=== PATIENT | female | born 1995 | race Caucasian/White ===

== ENCOUNTER 2017-09-06 10:19 | Inpatient (IN) | payer BC ==
[2017-09-06] MEDS ORDERED: Sodium Chloride 0.9% 10 ML Syringe FLUSH PRN (20:07)
[2017-09-06] MEDS ORDERED: Oxytocin/Lactated Ringers 10 UNIT/1,000 ML BAG IV SCH (20:15)
--- NOTE | 2017-09-06 20:32 | PCM.LDHP ---
<Nixon Snell - Last Filed: 09/06/17 20:22> L&D History of Present Illness - General Date of Service: 09/06/17 Admit Problem/Dx: Patient Status Order with Admit Dx/Problem 09/06/17 11:11 Patient Status [ADT] Routine 09/06/17 20:12 Patient Status [ADT] Routine Admission Diagnosis/Problem Admission Diagnosis/Problem Source of Information: Patient History Limitations: Reports: No Limitations - History of Present Illness Introduction:: Melody Little is a pleasant 22 year old with a FERCHO of 09/02/2017 who presents to labor and delivery for induction. She tested negative for GBS on . She is Rh positive with a blood type of A+. She reports she has noticed the onset of contractions over the last few days. She reports these contractions last approximately 20 secs and appear to occur more frequently in the mornings and at night. She describes the pain as a dull ache and rates it as a 2 out of 10. She locates the pain in her lower abdomen and lower back and does report that the throbbing sensation does appear to radiate down her legs at times. Melody also reports noticing losing a small amount of clear fluid this morning but denies any vaginal bleeding or clots. She reports the loss of fluid was minimal and was unable to give an approximation of how much was lost. Timing/Duration: Reports: seconds: Location, : Reports: Abdomen, Lower back Quality: Reports: Ache, Throbbing Severity: Mild Pain Score: 2 Improves with: Reports: Rest Worsens with: Reports: None Associated Symptoms: Reports: vaginal fluid, mild amount - Related Data Allergies/Adverse Reactions: Allergies Allergy/AdvReac Type Severity Reaction Status Date / Time No Known Allergies Allergy Verified 09/06/17 11:15 Home Medications: Home Meds Ferrous Sulfate [Iron] 325 mg PO DAILY 09/06/17 [History] Loratadine [Claritin] 10 mg PO DAILY 09/06/17 [History] Pnv No.122/Iron/Folic Acid [ Multi Tablet] 1 each PO DAILY 09/06/17 [ History] Social & Family History - Family History Cardiac: Reports: Other (See Below) (Patient reports both her paternal and maternal grandfathers have had open heart surgery) Musculoskeletal: Reports: Arthritis (Paternal grandmother reports a history of arthritis. She is alive and doing well) Neurological: Reports: Other (See Below) (Patient reports paternal grandfather has had a stroke) Endocrine/Metabolic: Reports: Diabetes, Type I (Paternal grandfather) Oncologic: Reports: Breast (Maternal Grandmother) H&P Review of Systems - Review of Systems: Review Of Systems: See Below General: Reports: Fatigue HEENT: Reports: No Symptoms Pulmonary: Reports: No Symptoms Cardiovascular: Reports: No Symptoms Gastrointestinal: Reports: No Symptoms Genitourinary: Reports: Frequency (Patient reports she has been urinating more frequently but denies any urinary symptoms) Musculoskeletal: Reports: Back Pain Skin: Reports: No Symptoms Psychiatric: Reports: No Symptoms Neurological: Reports: No Symptoms L&D Exam - Exam Exam: See Below - Vital Signs Vital Signs: Last Vital Signs Temp 97.5 F 09/06/17 10:46 Pulse 82 09/06/17 10:46 Resp 18 09/06/17 10:46 BP 121/77 09/06/17 10:46 Pulse Ox 100 09/06/17 10:46 Weight: 177 lb - OB Specific Fundal Height In cm: 40 Contraction Duration (sec): 20 Contraction Intensity: Mild to Moderate Movement: Active Heart Tones: Present Heart Tones per Min: 150 Heart Rate (FHR) Variability: Moderate (6-25 bmp) Presentation: Vertex - Exam General: Alert, Oriented HEENT: Conjunctiva Clear, EOMI, Hearing Intact, Mucosa Moist & Ceex Haci, Pupils Equal, Pupils Reactive Neck: Supple, Trachea Midline Lungs: Clear to Auscultation, Normal Respiratory Effort Cardiovascular: Regular Rate, Regular Rhythm GI/Abdominal Exam: Soft, Non-Tender, No Organomegaly, No Distention Extremities: Pedal Edema Skin: Warm, Dry, Intact DTR: 2+: Bicep (L), Bicep (R), Tricep (L), Tricep (R), 3+: Patella (L), Patella (R) Psychiatric: Alert, Normal Affect, Normal Mood - Patient Data Lab Results Last 24 hrs: Laboratory Results - last 24 hr 09/06/17 Range/Units 10:40 Membrane Rupture Negative Orders Last 24hrs: Active Orders 24 hr Category Date Time Status Patient Status [ADT] Routine ADT 09/06/17 11:11 Active Patient Status [ADT] Routine ADT 09/06/17 20:12 Active Activity as Tolerated [RC] PFP Care 09/06/17 20:12 Active Communication Order [RC] ASDIRECTED Care 09/06/17 20:12 Active Heart Tones [RC] ASDIRECTED Care 09/06/17 20:12 Active Non Stress Test [RC] PER UNIT ROUTINE Care 09/06/17 11:11 Active Notify Provider [RC] PFP Care 09/06/17 20:12 Active Notify Provider [RC] PRN Care 09/06/17 20:12 Active Peripheral IV Care [RC] . DIRECTED Care 09/06/17 20:12 Active Ready for Discharge [RC] PER UNIT ROUTINE Care 09/06/17 11:10 Active Vital Signs [RC] PER UNIT ROUTINE Care 09/06/17 11:11 Active Vital Signs [RC] PER UNIT ROUTINE Care 09/06/17 20:12 Active Regular Diet [DIET] Diet 09/07/17 Breakfast Active CBC WITH AUTO DIFF [HEME] Stat Lab 09/06/17 20:07 Ordered TYPE AND SCREEN [BBK] Stat Lab 09/06/17 20:07 Ordered Lactated Ringers [Ringers, Lactated] 1,000 ml Med 09/06/17 20:15 Active IV ASDIRECTED Oxytocin [Pitocin] 20 unit Med 09/06/17 20:15 Active Lactated Ringers [Ringers, Lactated] 1,000 ml IV ASDIRECTED Oxytocin/Lactated Ringers [Pitocin in LR 10 Units/1,000 Med 09/06/17 20:15 Active ML] 10 unit in 1,000 ml IV TITRATE Sodium Chloride 0.9% [Saline Flush] Med 09/06/17 20:07 Active 10 ml FLUSH ASDIRECTED PRN Electronic Heart Tones Ext w TOCO [WOMSER] Oth 09/06/17 20:12 Ordered Routine Electronic Heart Tones Internal [WOMSER] Per Unit Oth 09/06/17 20:12 Ordered Routine Peripheral IV Insertion Adult [OM.PC] Routine Oth 09/06/17 20:12 Ordered Resuscitation Status Routine Resus Stat 09/06/17 11:10 Ordered Medication Orders Lactated Ringer's (Ringers, Lactated) 1,000 mls @ 100 mls/hr IV ASDIRECTED HUAN Oxytocin/Lactated Ringer's (Pitocin In Lr 10 Units/1,000 Ml) 10 unit in 1,000 mls @ 12 mls/hr IV TITRATE HUAN; 2 MUNITS/MIN PRN Reason: Protocol Oxytocin 20 unit/ Lactated (Ringer's) 1,002 mls @ 500 mls/hr IV ASDIRECTED HUAN Sodium Chloride (Saline Flush) 10 ml FLUSH ASDIRECTED PRN PRN Reason: Keep Vein Open <Pascual Alnozo - Last Filed: 09/07/17 08:05> L&D History of Present Illness - General Admit Problem/Dx: Patient Status Order with Admit Dx/Problem 09/06/17 11:11 Patient Status [ADT] Routine 09/06/17 20:12 Patient Status [ADT] Routine Admission Diagnosis/Problem Admission Diagnosis/Problem Source of Information: Patient History Limitations: Reports: No Limitations H&P Review of Systems - Review of Systems: Review Of Systems: See Below General: Reports: No Symptoms HEENT: Reports: No Symptoms Pulmonary: Reports: No Symptoms Cardiovascular: Reports: No Symptoms Gastrointestinal: Reports: No Symptoms Genitourinary: Reports: No Symptoms Musculoskeletal: Reports: No Symptoms Skin: Reports: No Symptoms Psychiatric: Reports: No Symptoms Neurological: Reports: No Symptoms Hematologic/Lymphatic: Reports: No Symptoms Immunologic: Reports: No Symptoms L&D Exam - Exam Exam: See Below - Vital Signs Vital Signs: Last Vital Signs Temp 98.2 F 09/06/17 19:19 Pulse 81 09/06/17 19:19 Resp 18 09/07/17 00:34 BP 116/75 09/06/17 19:19 Pulse Ox 99 09/07/17 00:34 - Exam General: Alert, Oriented HEENT: PERRLA, Conjunctiva Clear, EACs Clear, EOMI, Hearing Intact, Mucosa Moist & Ceex Haci, Nares Patent, Normal Nasal Septum, Posterior Pharynx Clear, TMs Clear Neck: Supple, Trachea Midline Lungs: Clear to Auscultation, Normal Respiratory Effort Cardiovascular: Regular Rate, Regular Rhythm GI/Abdominal Exam: Normal Bowel Sounds, Soft, Non-Tender, No Organomegaly, No Distention, No Abnormal Bruit, No Mass, Pelvis Stable Rectal Exam: Normal Exam, Normal Rectal Tone Genitourinary: Normal external exam, Normal bimanual exam, Normal speculum exam Back Exam: Normal Inspection, Full Range of Motion Extremities: Normal Inspection, Normal Range of Motion, Non-Tender, No Pedal Edema, Normal Capillary Refill Skin: Warm, Dry, Intact Neurological: Cranial Nerves Intact, Reflexes Equal Bilateral Psychiatric: Alert, Normal Affect, Normal Mood - Patient Data Lab Results Last 24 hrs: Laboratory Results - last 24 hr 09/06/17 09/06/17 09/06/17 Range/Units 10:40 20:22 20:22 WBC 10.89 H (3.98-10.04) K/mm3 RBC 4.01 (3.98-5.22) M/mm3 Hgb 12.5 (11.2-15.7) gm/L Hct 35.8 (34.1-44.9) % MCV 89.3 (79.4-94.8) fl MCH 31.2 (25.6-32.2) pg MCHC 34.9 (32.2-35.5) g/dl RDW Std Deviation 40.9 (36.4-46.3) fL Plt Count 210 (182-369) K/mm3 MPV 9.3 L (9.4-12.3) fl Neut % (Auto) 74.9 H (34.0-71.1) % Lymph % (Auto) 16.3 L (19.3-51.7) % [place] % (Auto) 7.9 (4.7-12.5) % Eos % (Auto) 0.4 L (0.7-5.8) Baso % (Auto) 0.1 (0.1-1.2) % Neut # (Auto) 8.17 H (1.56-6.13) K/mm3 Lymph # (Auto) 1.77 (1.18-3.74) K/mm3 [place] # (Auto) 0.86 H (0.24-0.36) K/mm3 Eos # (Auto) 0.04 (0.04-0.36) K/mm3 Baso # (Auto) 0.01 (0.01-0.08) K/mm3 Membrane Rupture Negative Blood Type A POSITIVE Gel Antibody Screen Negative Result Diagrams: 09/06/17 20:22 - Problem List (1) 40 weeks gestation of SNOMED Code(s): 27869133 ICD Code: Z3A.40 - 40 WEEKS GESTATION OF Status: Acute Current Visit: Yes Problem List Initiated/Reviewed/Updated: No Orders Last 24hrs: Active Orders 24 hr Category Date Time Status Patient Status [ADT] Routine ADT 09/06/17 11:11 Active Patient Status [ADT] Routine ADT 09/06/17 20:12 Active Activity as Tolerated [RC] PFP Care 09/06/17 20:12 Active Communication Order [RC] ASDIRECTED Care 09/06/17 20:12 Active Non Stress Test [RC] PER UNIT ROUTINE Care 09/06/17 11:11 Active Notify Provider [RC] ASDIRECTED Care 09/06/17 23:33 Active Notify Provider [RC] PFP Care 09/06/17 20:12 Active Notify Provider [RC] PRN Care 09/06/17 20:12 Active Ready for Discharge [RC] PER UNIT ROUTINE Care 09/06/17 11:10 Active Vital Signs [RC] 04,12,20 Care 09/06/17 20:12 Active Regular Diet [DIET] Diet 09/07/17 Breakfast Active Bupivacaine/fentaNYL/NS [fentaNYL/Bupivacaine/NS 2 MCG- Med 09/06/17 23:45 Active 0.125% 100 ML] 100 ml EPIDUR ASDIRECTED Lactated Ringers [Ringers, Lactated] 1,000 ml Med 09/06/17 20:15 Active IV ASDIRECTED Oxytocin [Pitocin] 20 unit Med 09/06/17 20:15 Active Lactated Ringers [Ringers, Lactated] 1,000 ml IV ASDIRECTED Oxytocin/Lactated Ringers [Pitocin in LR 10 Units/1,000 Med 09/06/17 20:15 Active ML] 10 unit in 1,000 ml IV TITRATE Sodium Chloride 0.9% [Saline Flush] Med 09/06/17 20:07 Active 10 ml FLUSH ASDIRECTED PRN diphenhydrAMINE [Benadryl] Med 09/06/17 23:33 Active 25 mg IVPUSH Q6H PRN ePHEDrine [ePHEDrine Sulfate] Med 09/06/17 23:33 Active 5 mg IVPUSH ASDIRECTED PRN fentaNYL [Sublimaze] Med 09/06/17 23:33 Active 100 mcg EPIDUR Q3H PRN Electronic Heart Tones Ext w TOCO [WOMSER] Oth 09/06/17 20:12 Ordered Routine Electronic Heart Tones Internal [WOMSER] Per Unit Oth 09/06/17 20:12 Ordered Routine Peripheral IV Insertion Adult [OM.PC] Routine Oth 09/06/17 20:12 Ordered Resuscitation Status Routine Resus Stat 09/06/17 11:10 Ordered Medication Orders Diphenhydramine HCl (Benadryl) 25 mg IVPUSH Q6H PRN PRN Reason: pruritis Ephedrine Sulfate (Ephedrine Sulfate) 5 mg IVPUSH ASDIRECTED PRN PRN Reason: Hypotension Fentanyl (Sublimaze) 100 mcg EPIDUR Q3H PRN PRN Reason: Pain Last Admin: 09/07/17 00:35 Dose: 100 mcg Fentanyl/Bupivacaine HCl (Fentanyl/Bupivacaine/Ns 2 Mcg-0.125% 100 Ml) 100 ml EPIDUR ASDIRECTED HUAN Last Admin: 09/07/17 00:34 Dose: 100 ml Lactated Ringer's (Ringers, Lactated) 1,000 mls @ 100 mls/hr IV ASDIRECTED HUAN Last Admin: 09/07/17 03:08 Dose: 100 mls/hr Infusion: 09/07/17 03:08 Dose: 100 mls/hr Admin: 09/07/17 00:55 Dose: 100 mls/hr Infusion: 09/07/17 00:55 Dose: 100 mls/hr Admin: 09/07/17 00:25 Dose: 100 mls/hr Infusion: 09/07/17 00:25 Dose: 100 mls/hr Admin: 09/06/17 21:25 Dose: 100 mls/hr Oxytocin/Lactated Ringer's (Pitocin In Lr 10 Units/1,000 Ml) 10 unit in 1,000 mls @ 12 mls/hr IV TITRATE HUAN; 2 MUNITS/MIN PRN Reason: Protocol Last Titration: 09/07/17 05:50 Dose: 2 munits/min, 12 mls/hr Titration: 09/07/17 05:20 Dose: 1 munits/min, 6 mls/hr Titration: 09/07/17 01:30 Dose: 0 munits/min, 0 mls/hr Titration: 09/07/17 00:07 Dose: 2 munits/min, 12 mls/hr Titration: 09/06/17 23:13 Dose: 3 munits/min, 18 mls/hr Admin: 09/06/17 21:25 Dose: 2 munits/min, 12 mls/hr Oxytocin 20 unit/ Lactated (Ringer's) 1,002 mls @ 500 mls/hr IV ASDIRECTED HUAN Sodium Chloride (Saline Flush) 10 ml FLUSH ASDIRECTED PRN PRN Reason: Keep Vein Open Assessment/Plan Comment:: Patient seen, examined and discussed with the student.
[2017-09-06] MEDS ORDERED: Lactated Ringers 1,000 ML ONE ×2 (21:15→23:42)
[2017-09-06] MEDS ORDERED: Oxytocin/Lactated Ringers 10 UNIT/1,000 ML BAG IV ONE (21:16)
[2017-09-06] MEDS: Lactated Ringers 1,000 ML IV SCH (21:25)
[2017-09-06] MEDS ORDERED: fentaNYL 100 MCG/2 ML SDV EPIDUR PRN (23:33)
[2017-09-06] MEDS ORDERED: ePHEDrine 50 MG/ML SDV IVPUSH PRN (23:33)
[2017-09-06] MEDS ORDERED: diphenhydrAMINE 50 MG/ML SDV IVPUSH PRN (23:33)
[2017-09-06] MEDS ORDERED: Bupivacaine/fentaNYL/NS 100 ML Bag EPIDUR SCH (23:45)
[2017-09-07] MEDS: Lactated Ringers 1,000 ML IV SCH ×4 (00:25→08:43)
--- NOTE | 2017-09-07 00:25 | PCM.PREANE ---
Preanesthetic Assessment - Anesthesia/Transfusion/Family Hx Anesthesia History: Prior Anesthesia Without Reaction Family History of Anesthesia Reaction: No Transfusion History: No Prior Transfusion(s) - Review of Systems General: No Symptoms Pulmonary: No Symptoms Cardiovascular: No Symptoms Gastrointestinal: Diarrhea (last day) Neurological: No Symptoms Other: Reports: None - Physical Assessment O2 Sat by Pulse Oximetry: 99 Respiratory Rate: 18 Vital Signs: Last Vital Signs Temp 98.2 F 09/06/17 19:19 Pulse 81 09/06/17 19:19 Resp 18 09/06/17 19:19 BP 116/75 09/06/17 19:19 Pulse Ox 99 09/06/17 19:19 Height: 5 ft 5 in Weight: 80.286 kg ASA Class: 2 Mental Status: Alert & Oriented x3 Airway Class: Mallampati = 1 Dentition: Reports: Normal Dentition Thyro-Mental Finger Breadths: 3 Mouth Opening Finger Breadths: 3 ROM/Head Extension: Full Lungs: Clear to Auscultation, Normal Respiratory Effort Cardiovascular: Regular Rate, Regular Rhythm - Lab Values: Laboratory Last Values WBC 10.89 K/mm3 (3.98-10.04) H 09/06/17 20:22 RBC 4.01 M/mm3 (3.98-5.22) 09/06/17 20:22 Hgb 12.5 gm/L (11.2-15.7) 09/06/17 20:22 Hct 35.8 % (34.1-44.9) 09/06/17 20:22 MCV 89.3 fl (79.4-94.8) 09/06/17 20:22 MCH 31.2 pg (25.6-32.2) 09/06/17 20:22 MCHC 34.9 g/dl (32.2-35.5) 09/06/17 20:22 RDW Std Deviation 40.9 fL (36.4-46.3) 09/06/17 20:22 Plt Count 210 K/mm3 (182-369) 09/06/17 20:22 MPV 9.3 fl (9.4-12.3) L 09/06/17 20:22 Neut % (Auto) 74.9 % (34.0-71.1) H 09/06/17 20:22 Lymph % (Auto) 16.3 % (19.3-51.7) L 09/06/17 20:22 [place] % (Auto) 7.9 % (4.7-12.5) 09/06/17 20:22 Eos % (Auto) 0.4 (0.7-5.8) L 09/06/17 20:22 Baso % (Auto) 0.1 % (0.1-1.2) 09/06/17 20:22 Neut # (Auto) 8.17 K/mm3 (1.56-6.13) H 09/06/17 20:22 Lymph # (Auto) 1.77 K/mm3 (1.18-3.74) 09/06/17 20: [place] # (Auto) 0.86 K/mm3 (0.24-0.36) H 09/06/17 20:22 Eos # (Auto) 0.04 K/mm3 (0.04-0.36) 09/06/17 20: Baso # (Auto) 0.01 K/mm3 (0.01-0.08) 09/06/17 20:22 Membrane Rupture Negative 09/06/17 10:40 Blood Type A POSITIVE 09/06/17 20:22 Gel Antibody Screen Negative 09/06/17 20:22 - Allergies Allergies/Adverse Reactions: Allergies Allergy/AdvReac Type Severity Reaction Status Date / Time No Known Allergies Allergy Verified 09/06/17 11:15 - Blood Blood Available: No - Acknowledgements Anesthesia Type Planned: Epidural Pt an Appropriate Candidate for the Planned Anesthesia: Yes Alternatives and Risks of Anesthesia Discussed w Pt/Guardian: Yes Pt/Guardian Understands and Agrees with Anesthesia Plan: Yes PreAnesthesia Questionnaire Cardiovascular History: Reports: None Respiratory History: Reports: None Gastrointestinal History: Reports: GERD (very little) [employer] History: Reports: : 1 (40 weeks) Para: 0 - SUBSTANCE USE Smoking Status *Q: Never Smoker Tobacco Use Within Last Twelve Months: No Second Hand Smoke Exposure: No Days Per Week of Alcohol Use: 0 Recreational Drug Use History: No - HOME MEDS Home Medications: Home Meds Ferrous Sulfate [Iron] 325 mg PO DAILY 09/06/17 [History] Loratadine [Claritin] 10 mg PO DAILY 09/06/17 [History] Pnv No.122/Iron/Folic Acid [ Multi Tablet] 1 each PO DAILY 09/06/17 [ History] - CURRENT (IN HOUSE) MEDS Current Meds: Current Medications Diphenhydramine HCl (Benadryl) 25 mg IVPUSH Q6H PRN PRN Reason: pruritis Ephedrine Sulfate (Ephedrine Sulfate) 5 mg IVPUSH ASDIRECTED PRN PRN Reason: Hypotension Fentanyl (Sublimaze) 100 mcg EPIDUR Q3H PRN PRN Reason: Pain Fentanyl/Bupivacaine HCl (Fentanyl/Bupivacaine/Ns 2 Mcg-0.125% 100 Ml) 100 ml EPIDUR ASDIRECTED HUAN Lactated Ringer's (Ringers, Lactated) 1,000 mls @ 100 mls/hr IV ASDIRECTED HUAN Last Admin: 09/06/17 21:25 Dose: 100 mls/hr Oxytocin/Lactated Ringer's (Pitocin In Lr 10 Units/1,000 Ml) 10 unit in 1,000 mls @ 12 mls/hr IV TITRATE HUAN; 2 MUNITS/MIN PRN Reason: Protocol Last Titration: 09/07/17 00:07 Dose: 2 munits/min, 12 mls/hr Oxytocin 20 unit/ Lactated (Ringer's) 1,002 mls @ 500 mls/hr IV ASDIRECTED HUAN Sodium Chloride (Saline Flush) 10 ml FLUSH ASDIRECTED PRN PRN Reason: Keep Vein Open Discontinued Medications Lactated Ringer's (Ringers, Lactated) Confirm Administered Dose 1,000 mls @ as directed .ROUTE .STK-MED ONE Stop: 09/06/17 21:16 Oxytocin/Lactated Ringer's (Pitocin In Lr 10 Units/1,000 Ml) Confirm Administered Dose 10 unit in 1,000 mls @ as directed IV .STK-MED ONE Stop: 09/06/17 21:17 Lactated Ringer's (Ringers, Lactated) Confirm Administered Dose 1,000 mls @ as directed .ROUTE .STK-MED ONE Stop: 09/06/17 23:43
[2017-09-07] MEDS ORDERED: Lactated Ringers 1,000 ML ONE ×3 (00:48→08:33)
--- NOTE | 2017-09-07 08:10 | PCM.SN ---
- Free Text/Narrative Note: Amniotomy clear fluid at 0758 hrs. on 09/07/17. Cervix is 6 cm dilated 70 % effaced, soft, mid position, vertex -1. Category 1 heart rate
[2017-09-07] MEDS ORDERED: Lidocaine 1% 50 ML MDV ONE (18:34)
--- NOTE | 2017-09-07 19:06 | PCM.DEL ---
L & D Note - General Info Date of Service: 09/07/17 Mother's Due Date: 09/02/17 - Delivery Note Labor: Spontaneous, Augmented by ARM, Augmented by Oxytocin Delivery Outcome: Livebirth (female liveborn 09/07/17 at 1832 hrs. under epidural (worn off)weight pending Apgars 8/9 FERNANDEZ no episiotomy first-degree periurethral right medial laceration and midline and right second-degree laceration sutured with 3-0 Monocryl 1 for second-degree laceration first- degree laceration not bleeding not sutured.) Delivery Method: Spontaneous Vaginal Delivery-Single Delivery Mode: Spontaneous Presentation: Right Occiput Anterior (FERNANDEZ) Nuchal Cord: None Prep: Povidone-Iodine (Betadine Anesthesia Type: Local (one percent lidocaine without epinephrine), Epidural ( for labor, no anesthesia at delivery, lidocaine 1% without epinephrine for repair of second-degree laceration midline right) Anesthetic: Lidocaine (Xylocaine) 1% Plain Local Anesthetic Volume: Other (12 mL) Amniotic Fluid Description: Clear Episiotomy Type: None Laceration: 1st Degree (right periurethral medial not bleeding not sutured), 2nd Degree (midline slightly to patient's right sutured with 3-0 Monocryl times one) Suture type: Other (Monocryl times one) Suture size: 3-0 Placenta: Intact (intact delivered at 1837 hrs. and examined discarded central cord insertion), Spontaneous (1837 hrs. 09/07/17) Cord: 3 Vessels Estimated Blood Loss: 300 Resuscitation Needed: No [place]: Suctioned, Bulb Syringe, Stimulated, Warmed, [place] Used, Warmer Used Provider: aPscual Alonzo Score 1 min: 8 Score 5 min: 9 - Patient Data Vitals - Most Recent: Last Vital Signs Temp 98.2 F 09/06/17 19:19 Pulse 81 09/06/17 19:19 Resp 18 09/07/17 00:34 BP 116/75 09/06/17 19:19 Pulse Ox 99 09/07/17 00:34 Weight - Most Recent: 177 lb I&O - Last 24 Hours: Intake & Output 09/07/17 09/07/17 09/07/17 06:59 14:59 22:59 Intake Total 60 Balance 60 Lab Results Last 24 Hours: Laboratory Results - last 24 hr 09/06/17 09/06/17 Range/Units 20:22 20:22 WBC 10.89 H (3.98-10.04) K/mm3 RBC 4.01 (3.98-5.22) M/mm3 Hgb 12.5 (11.2-15.7) gm/L Hct 35.8 (34.1-44.9) % MCV 89.3 (79.4-94.8) fl MCH 31.2 (25.6-32.2) pg MCHC 34.9 (32.2-35.5) g/dl RDW Std Deviation 40.9 (36.4-46.3) fL Plt Count 210 (182-369) K/mm3 MPV 9.3 L (9.4-12.3) fl Neut % (Auto) 74.9 H (34.0-71.1) % Lymph % (Auto) 16.3 L (19.3-51.7) % [place] % (Auto) 7.9 (4.7-12.5) % Eos % (Auto) 0.4 L (0.7-5.8) Baso % (Auto) 0.1 (0.1-1.2) % Neut # (Auto) 8.17 H (1.56-6.13) K/mm3 Lymph # (Auto) 1.77 (1.18-3.74) K/mm3 [place] # (Auto) 0.86 H (0.24-0.36) K/mm3 Eos # (Auto) 0.04 (0.04-0.36) K/mm3 Baso # (Auto) 0.01 (0.01-0.08) K/mm3 Blood Type A POSITIVE Gel Antibody Screen Negative Med Orders - Current: Current Medications Diphenhydramine HCl (Benadryl) 25 mg IVPUSH Q6H PRN PRN Reason: pruritis Ephedrine Sulfate (Ephedrine Sulfate) 5 mg IVPUSH ASDIRECTED PRN PRN Reason: Hypotension Fentanyl (Sublimaze) 100 mcg EPIDUR Q3H PRN PRN Reason: Pain Last Admin: 09/07/17 00:35 Dose: 100 mcg Fentanyl/Bupivacaine HCl (Fentanyl/Bupivacaine/Ns 2 Mcg-0.125% 100 Ml) 100 ml EPIDUR ASDIRECTED HUAN Last Admin: 09/07/17 00:34 Dose: 100 ml Lactated Ringer's (Ringers, Lactated) 1,000 mls @ 100 mls/hr IV ASDIRECTED HUAN Last Admin: 09/07/17 08:43 Dose: 100 mls/hr Oxytocin/Lactated Ringer's (Pitocin In Lr 10 Units/1,000 Ml) 10 unit in 1,000 mls @ 12 mls/hr IV TITRATE HUAN; 2 MUNITS/MIN PRN Reason: Protocol Last Titration: 09/07/17 11:40 Dose: 3 munits/min, 18 mls/hr Oxytocin 20 unit/ Lactated (Ringer's) 1,002 mls @ 500 mls/hr IV ASDIRECTED HUAN Sodium Chloride (Saline Flush) 10 ml FLUSH ASDIRECTED PRN PRN Reason: Keep Vein Open Discontinued Medications Lactated Ringer's (Ringers, Lactated) Confirm Administered Dose 1,000 mls @ as directed .ROUTE .STK-MED ONE Stop: 09/06/17 21:16 Oxytocin/Lactated Ringer's (Pitocin In Lr 10 Units/1,000 Ml) Confirm Administered Dose 10 unit in 1,000 mls @ as directed IV .STK-MED ONE Stop: 09/06/17 21:17 Lactated Ringer's (Ringers, Lactated) Confirm Administered Dose 1,000 mls @ as directed .ROUTE .STK-MED ONE Stop: 09/06/17 23:43 Lactated Ringer's (Ringers, Lactated) Confirm Administered Dose 1,000 mls @ as directed .ROUTE .STK-MED ONE Stop: 09/07/17 00:49 Lactated Ringer's (Ringers, Lactated) Confirm Administered Dose 1,000 mls @ as directed .ROUTE .STK-MED ONE Stop: 09/07/17 03:05 Lactated Ringer's (Ringers, Lactated) Confirm Administered Dose 1,000 mls @ as directed .ROUTE .STK-MED ONE Stop: 09/07/17 08:34 Lidocaine HCl (Xylocaine 1%) Confirm Administered Dose 50 ml .ROUTE .STK-MED ONE Stop: 09/07/17 18:35 - Problem List & Annotations (1) 40 weeks gestation of SNOMED Code(s): 32323182 Code(s): Z3A.40 - 40 WEEKS GESTATION OF Status: Acute Current Visit: Yes (2) Second degree perineal laceration during delivery SNOMED Code(s): 7828213 Code(s): O70.1 - SECOND DEGREE PERINEAL LACERATION DURING DELIVERY Status: Acute Current Visit: Yes (3) Periurethral laceration, delivered, current hospitalization SNOMED Code(s): 252109359 Code(s): O71.82 - OTHER SPECIFIED TRAUMA TO PERINEUM AND VULVA Status: Acute Current Visit: Yes - Problem List Review Problem List Initiated/Reviewed/Updated: No - My Orders Last 24 Hours: My Active Orders 09/06/17 20:07 Sodium Chloride 0.9% [Saline Flush] 10 ml FLUSH ASDIRECTED PRN 09/06/17 20:12 Patient Status [ADT] Routine Activity as Tolerated [RC] PFP Communication Order [RC] ASDIRECTED Notify Provider [RC] PFP Notify Provider [RC] PRN Vital Signs [RC] 04,12,20 Electronic Heart Tones Ext w TOCO [WOMSER] Routine Electronic Heart Tones Internal [WOMSER] Per Unit Routine Peripheral IV Insertion Adult [OM.PC] Routine 09/06/17 20:15 Lactated Ringers [Ringers, Lactated] 1,000 ml IV ASDIRECTED Oxytocin [Pitocin] 20 unit Lactated Ringers [Ringers, Lactated] 1,000 ml IV ASDIRECTED Oxytocin/Lactated Ringers [Pitocin in LR 10 Units/1,000 ML] 10 unit in 1,000 ml IV TITRATE 09/07/17 Breakfast Regular Diet [DIET] - Plan Plan:: Patient seen, examined and discussed with the student.
[2017-09-07] MEDS ORDERED: Benzocaine/Menthol 20%-0.5% Spray 56 GM Canister TOP PRN (19:11)
[2017-09-07] MEDS ORDERED: Witch Hazel Medicated Pads 100/Jar TOP PRN (19:11)
[2017-09-07] MEDS ORDERED: Acetaminophen/HYDROcodone 325-5 MG Tab PO PRN (19:11)
[2017-09-07] MEDS ORDERED: Acetaminophen 325 MG Tab PO PRN (19:11)
[2017-09-07] MEDS ORDERED: Docusate Sodium 100 MG Cap PO PRN (19:11)
[2017-09-07] MEDS ORDERED: Lanolin 100% Cream 7 GM Tube TOP PRN (19:11)
[2017-09-07] MEDS ORDERED: Bupivacaine 0.25% 10 ML SDV ONE (22:22)
--- NOTE | 2017-09-08 11:00 | PCM.SN ---
- Free Text/Narrative Note: exam Afebrile, chest clear, uterus at umbilicus -1. No heavy vaginal bleeding. No leg cramping.
--- NOTE | 2017-09-08 14:44 | PCM48HPAN ---
Post Anesthesia Note - EVALUATION WITHIN 48HRS OF ANESTHETIC Vital Signs in Normal Range: Yes Patient Participated in Evaluation: Yes Respiratory Function Stable: Yes Airway Patent: Yes Cardiovascular Function Stable: Yes Hydration Status Stable: Yes Pain Control Satisfactory: Yes Nausea and Vomiting Control Satisfactory: Yes Mental Status Recovered: Yes Pulse Rate: 94 Resp Rate: 15 Temperature: 36.7 C Blood Pressure: 116/68 - COMMENTS/OBSERVATIONS Free Text/Narrative:: Patient overally happy with epidural, had some sacral pain with delivery. No pain, nausea or headache.
[2017-09-08] MEDS: Ibuprofen 600 MG Tab PO PRN (20:58)
--- NOTE | 2017-09-09 09:41 | PCM.DCSUM1 ---
Discharge Summary - Hospital Course Free Text/Narrative:: [facility] LIVE L/D Delivery Note Patient Name: MEME LOPEZ Date of : 89 Patient Status: Inpatient Attending Provider: Pascual Alonzo Date: 09/07/17 19:00 Initialization Date: 09/07/17 19:00 L & D Note - General Info Date of Service: 09/07/17 Mother's Due Date: 09/02/17 - Delivery Note Labor: Spontaneous, Augmented by ARM, Augmented by Oxytocin Delivery Outcome: Livebirth (female liveborn 09/07/17 at 1832 hrs. under epidural (worn off)weight pending Apgars 8/9 FERNANDEZ no episiotomy first-degree periurethral right medial laceration and midline and right second-degree laceration sutured with 3-0 Monocryl 1 for second-degree laceration first- degree laceration not bleeding not sutured.) Infant Delivery Method: Spontaneous Vaginal Delivery-Single Delivery Mode: Spontaneous Presentation: Right Occiput Anterior (FERNANDEZ) Nuchal Cord: None Prep: Povidone-Iodine (Betadine Anesthesia Type: Local (one percent lidocaine without epinephrine), Epidural ( for labor, no anesthesia at delivery, lidocaine 1% without epinephrine for repair of second-degree laceration midline right) Anesthetic: Lidocaine (Xylocaine) 1% Plain Local Anesthetic Volume: Other (12 mL) Amniotic Fluid Description: Clear Episiotomy Type: None Laceration: 1st Degree (right periurethral medial not bleeding not sutured), 2nd Degree (midline slightly to patient's right sutured with 3-0 Monocryl times one) Suture type: Other (Monocryl times one) Suture size: 3-0 Placenta: Intact (intact delivered at 1837 hrs. and examined discarded central cord insertion), Spontaneous (1837 hrs. 09/07/17) Cord: 3 Vessels Estimated Blood Loss: 300 Resuscitation Needed: No : Suctioned, Bulb Syringe, Stimulated, Warmed, Thomson Used, Warmer Used Provider: Pascual Alonzo Score 1 min: 8 Score 5 min: 9 - Patient Data Vitals - Most Recent: Last Vital Signs Temp 98.2 F 09/06/17 19:19 Pulse 81 09/06/17 19:19 Resp 18 09/07/17 00:34 BP 116/75 09/06/17 19:19 Pulse Ox 99 09/07/17 00:34 Weight - Most Recent: 177 lb I&O - Last 24 Hours: Intake & Output 09/07/17 09/07/17 09/07/17 06:59 14:59 22:59 Intake Total 60 Balance 60 Lab Results Last 24 Hours: Laboratory Results - last 24 hr 09/06/17 09/06/17 Range/Units 20:22 20:22 WBC 10.89 H (3.98-10.04) K/mm3 RBC 4.01 (3.98-5.22) M/mm3 Hgb 12.5 (11.2-15.7) gm/L Hct 35.8 (34.1-44.9) % MCV 89.3 (79.4-94.8) fl MCH 31.2 (25.6-32.2) pg MCHC 34.9 (32.2-35.5) g/dl RDW Std Deviation 40.9 (36.4-46.3) fL Plt Count 210 (182-369) K/mm3 MPV 9.3 L (9.4-12.3) fl Neut % (Auto) 74.9 H (34.0-71.1) % Lymph % (Auto) 16.3 L (19.3-51.7) % Sargent % (Auto) 7.9 (4.7-12.5) % Eos % (Auto) 0.4 L (0.7-5.8) Baso % (Auto) 0.1 (0.1-1.2) % Neut # (Auto) 8.17 H (1.56-6.13) K/mm3 Lymph # (Auto) 1.77 (1.18-3.74) K/mm3 Sargent # (Auto) 0.86 H (0.24-0.36) K/mm3 Eos # (Auto) 0.04 (0.04-0.36) K/mm3 Baso # (Auto) 0.01 (0.01-0.08) K/mm3 Blood Type A POSITIVE Gel Antibody Screen Negative Med Orders - Current: Current Medications Diphenhydramine HCl (Benadryl) 25 mg IVPUSH Q6H PRN PRN Reason: pruritis Ephedrine Sulfate (Ephedrine Sulfate) 5 mg IVPUSH ASDIRECTED PRN PRN Reason: Hypotension Fentanyl (Sublimaze) 100 mcg EPIDUR Q3H PRN PRN Reason: Pain Last Admin: 09/07/17 00:35 Dose: 100 mcg Fentanyl/Bupivacaine HCl (Fentanyl/Bupivacaine/Ns 2 Mcg-0.125% 100 Ml) 100 ml EPIDUR ASDIRECTED HUAN Last Admin: 09/07/17 00:34 Dose: 100 ml Lactated Ringer's (Ringers, Lactated) 1,000 mls @ 100 mls/hr IV ASDIRECTED HUAN Last Admin: 09/07/17 08:43 Dose: 100 mls/hr Oxytocin/Lactated Ringer's (Pitocin In Lr 10 Units/1,000 Ml) 10 unit in 1,000 mls @ 12 mls/hr IV TITRATE HUAN; 2 MUNITS/MIN PRN Reason: Protocol Last Titration: 09/07/17 11:40 Dose: 3 munits/min, 18 mls/hr Oxytocin 20 unit/ Lactated (Ringer's) 1,002 mls @ 500 mls/hr IV ASDIRECTED HUAN Sodium Chloride (Saline Flush) 10 ml FLUSH ASDIRECTED PRN PRN Reason: Keep Vein Open Discontinued Medications Lactated Ringer's (Ringers, Lactated) Confirm Administered Dose 1,000 mls @ as directed .ROUTE .STK-MED ONE Stop: 09/06/17 21:16 Oxytocin/Lactated Ringer's (Pitocin In Lr 10 Units/1,000 Ml) Confirm Administered Dose 10 unit in 1,000 mls @ as directed IV .STK-MED ONE Stop: 09/06/17 21:17 Lactated Ringer's (Ringers, Lactated) Confirm Administered Dose 1,000 mls @ as directed .ROUTE .STK-MED ONE Stop: 09/06/17 23:43 Lactated Ringer's (Ringers, Lactated) Confirm Administered Dose 1,000 mls @ as directed .ROUTE .STK-MED ONE Stop: 09/07/17 00:49 Lactated Ringer's (Ringers, Lactated) Confirm Administered Dose 1,000 mls @ as directed .ROUTE .STK-MED ONE Stop: 09/07/17 03:05 Lactated Ringer's (Ringers, Lactated) Confirm Administered Dose 1,000 mls @ as directed .ROUTE .STK-MED ONE Stop: 09/07/17 08:34 Lidocaine HCl (Xylocaine 1%) Confirm Administered Dose 50 ml .ROUTE .STK-MED ONE Stop: 09/07/17 18:35 - Problem List & Annotations (1) 40 weeks gestation of SNOMED Code(s): 19666209 Code(s): Z3A.40 - 40 WEEKS GESTATION OF Status: Acute Current Visit: Yes (2) Second degree perineal laceration during delivery SNOMED Code(s): 6755973 Code(s): O70.1 - SECOND DEGREE PERINEAL LACERATION DURING DELIVERY Status: Acute Current Visit: Yes (3) Periurethral laceration, delivered, current hospitalization SNOMED Code(s): 940848013 Code(s): O71.82 - OTHER SPECIFIED TRAUMA TO PERINEUM AND VULVA Status: Acute Current Visit: Yes - Problem List Review Problem List Initiated/Reviewed/Updated: No - My Orders Last 24 Hours: My Active Orders 09/06/17 20:07 Sodium Chloride 0.9% [Saline Flush] 10 ml FLUSH ASDIRECTED PRN 09/06/17 20:12 Patient Status [ADT] Routine Activity as Tolerated [RC] PFP Communication Order [RC] ASDIRECTED Notify Provider [RC] PFP Notify Provider [RC] PRN Vital Signs [RC] 04,12,20 Electronic Heart Tones Ext w TOCO [WOMSER] Routine Electronic Heart Tones Internal [WOMSER] Per Unit Routine Peripheral IV Insertion Adult [OM.PC] Routine 09/06/17 20:15 Lactated Ringers [Ringers, Lactated] 1,000 ml IV ASDIRECTED Oxytocin [Pitocin] 20 unit Lactated Ringers [Ringers, Lactated] 1,000 ml IV ASDIRECTED Oxytocin/Lactated Ringers [Pitocin in LR 10 Units/1,000 ML] 10 unit in 1,000 ml IV TITRATE 09/07/17 Breakfast Regular Diet [DIET] - Plan Plan:: Patient seen, examined and discussed with the student. HPI Initial Comments: [facility] LIVE L/D Delivery Note Patient Name: MEME LOPEZ Date of : 89 Patient Status: Inpatient Attending Provider: Pascual Alonzo Date: 09/07/17 19:00 Initialization Date: 09/07/17 19:00 L & D Note - General Info Date of Service: 09/07/17 Mother's Due Date: 09/02/17 - Delivery Note Labor: Spontaneous, Augmented by ARM, Augmented by Oxytocin Delivery Outcome: Livebirth (female liveborn 09/07/17 at 1832 hrs. under epidural (worn off)weight pending Apgars 8/9 FERNANDEZ no episiotomy first-degree periurethral right medial laceration and midline and right second-degree laceration sutured with 3-0 Monocryl 1 for second-degree laceration first- degree laceration not bleeding not sutured.) Infant Delivery Method: Spontaneous Vaginal Delivery-Single Infant Delivery Mode: Spontaneous Presentation: Right Occiput Anterior (FERNANDEZ) Nuchal Cord: None Prep: Povidone-Iodine (Betadine Anesthesia Type: Local (one percent lidocaine without epinephrine), Epidural ( for labor, no anesthesia at delivery, lidocaine 1% without epinephrine for repair of second-degree laceration midline right) Anesthetic: Lidocaine (Xylocaine) 1% Plain Local Anesthetic Volume: Other (12 mL) Amniotic Fluid Description: Clear Episiotomy Type: None Laceration: 1st Degree (right periurethral medial not bleeding not sutured), 2nd Degree (midline slightly to patient's right sutured with 3-0 Monocryl times one) Suture type: Other (Monocryl times one) Suture size: 3-0 Placenta: Intact (intact delivered at 1837 hrs. and examined discarded central cord insertion), Spontaneous (1837 hrs. 09/07/17) Cord: 3 Vessels Estimated Blood Loss: 300 Resuscitation Needed: No [place]: Suctioned, Bulb Syringe, Stimulated, Warmed, Thomson Used, Warmer Used Provider: Pascual Alonzo Score 1 min: 8 Score 5 min: 9 - Patient Data Vitals - Most Recent: Last Vital Signs Temp 98.2 F 09/06/17 19:19 Pulse 81 09/06/17 19:19 Resp 18 09/07/17 00:34 BP 116/75 09/06/17 19:19 Pulse Ox 99 09/07/17 00:34 Weight - Most Recent: 177 lb I&O - Last 24 Hours: Intake & Output 09/07/17 09/07/17 09/07/17 06:59 14:59 22:59 Intake Total 60 Balance 60 Lab Results Last 24 Hours: Laboratory Results - last 24 hr 09/06/17 09/06/17 Range/Units 20:22 20:22 WBC 10.89 H (3.98-10.04) K/mm3 RBC 4.01 (3.98-5.22) M/mm3 Hgb 12.5 (11.2-15.7) gm/L Hct 35.8 (34.1-44.9) % MCV 89.3 (79.4-94.8) fl MCH 31.2 (25.6-32.2) pg MCHC 34.9 (32.2-35.5) g/dl RDW Std Deviation 40.9 (36.4-46.3) fL Plt Count 210 (182-369) K/mm3 MPV 9.3 L (9.4-12.3) fl Neut % (Auto) 74.9 H (34.0-71.1) % Lymph % (Auto) 16.3 L (19.3-51.7) % Sargent % (Auto) 7.9 (4.7-12.5) % Eos % (Auto) 0.4 L (0.7-5.8) Baso % (Auto) 0.1 (0.1-1.2) % Neut # (Auto) 8.17 H (1.56-6.13) K/mm3 Lymph # (Auto) 1.77 (1.18-3.74) K/mm3 Sargent # (Auto) 0.86 H (0.24-0.36) K/mm3 Eos # (Auto) 0.04 (0.04-0.36) K/mm3 Baso # (Auto) 0.01 (0.01-0.08) K/mm3 Blood Type A POSITIVE Gel Antibody Screen Negative Med Orders - Current: Current Medications Diphenhydramine HCl (Benadryl) 25 mg IVPUSH Q6H PRN PRN Reason: pruritis Ephedrine Sulfate (Ephedrine Sulfate) 5 mg IVPUSH ASDIRECTED PRN PRN Reason: Hypotension Fentanyl (Sublimaze) 100 mcg EPIDUR Q3H PRN PRN Reason: Pain Last Admin: 09/07/17 00:35 Dose: 100 mcg Fentanyl/Bupivacaine HCl (Fentanyl/Bupivacaine/Ns 2 Mcg-0.125% 100 Ml) 100 ml EPIDUR ASDIRECTED HUAN Last Admin: 09/07/17 00:34 Dose: 100 ml Lactated Ringer's (Ringers, Lactated) 1,000 mls @ 100 mls/hr IV ASDIRECTED HUAN Last Admin: 09/07/17 08:43 Dose: 100 mls/hr Oxytocin/Lactated Ringer's (Pitocin In Lr 10 Units/1,000 Ml) 10 unit in 1,000 mls @ 12 mls/hr IV TITRATE HUAN; 2 MUNITS/MIN PRN Reason: Protocol Last Titration: 09/07/17 11:40 Dose: 3 munits/min, 18 mls/hr Oxytocin 20 unit/ Lactated (Ringer's) 1,002 mls @ 500 mls/hr IV ASDIRECTED HUAN Sodium Chloride (Saline Flush) 10 ml FLUSH ASDIRECTED PRN PRN Reason: Keep Vein Open Discontinued Medications Lactated Ringer's (Ringers, Lactated) Confirm Administered Dose 1,000 mls @ as directed .ROUTE .STK-MED ONE Stop: 09/06/17 21:16 Oxytocin/Lactated Ringer's (Pitocin In Lr 10 Units/1,000 Ml) Confirm Administered Dose 10 unit in 1,000 mls @ as directed IV .STK-MED ONE Stop: 09/06/17 21:17 Lactated Ringer's (Ringers, Lactated) Confirm Administered Dose 1,000 mls @ as directed .ROUTE .STK-MED ONE Stop: 09/06/17 23:43 Lactated Ringer's (Ringers, Lactated) Confirm Administered Dose 1,000 mls @ as directed .ROUTE .STK-MED ONE Stop: 09/07/17 00:49 Lactated Ringer's (Ringers, Lactated) Confirm Administered Dose 1,000 mls @ as directed .ROUTE .STK-MED ONE Stop: 09/07/17 03:05 Lactated Ringer's (Ringers, Lactated) Confirm Administered Dose 1,000 mls @ as directed .ROUTE .STK-MED ONE Stop: 09/07/17 08:34 Lidocaine HCl (Xylocaine 1%) Confirm Administered Dose 50 ml .ROUTE .[employer] ONE Stop: 09/07/17 18:35 - Problem List & Annotations (1) 40 weeks gestation of SNOMED Code(s): 79908577 Code(s): Z3A.40 - 40 WEEKS GESTATION OF Status: Acute Current Visit: Yes (2) Second degree perineal laceration during delivery SNOMED Code(s): 7867039 Code(s): O70.1 - SECOND DEGREE PERINEAL LACERATION DURING DELIVERY Status: Acute Current Visit: Yes (3) Periurethral laceration, delivered, current hospitalization SNOMED Code(s): 781639777 Code(s): O71.82 - OTHER SPECIFIED TRAUMA TO PERINEUM AND VULVA Status: Acute Current Visit: Yes - Problem List Review Problem List Initiated/Reviewed/Updated: No - My Orders Last 24 Hours: My Active Orders 09/06/17 20:07 Sodium Chloride 0.9% [Saline Flush] 10 ml FLUSH ASDIRECTED PRN 09/06/17 20:12 Patient Status [ADT] Routine Activity as Tolerated [RC] PFP Communication Order [RC] ASDIRECTED Notify Provider [RC] PFP Notify Provider [RC] PRN Vital Signs [RC] 04,12,20 Electronic Heart Tones Ext w TOCO [WOMSER] Routine Electronic Heart Tones Internal [WOMSER] Per Unit Routine Peripheral IV Insertion Adult [OM.PC] Routine 09/06/17 20:15 Lactated Ringers [Ringers, Lactated] 1,000 ml IV ASDIRECTED Oxytocin [Pitocin] 20 unit Lactated Ringers [Ringers, Lactated] 1,000 ml IV ASDIRECTED Oxytocin/Lactated Ringers [Pitocin in LR 10 Units/1,000 ML] 10 unit in 1,000 ml IV TITRATE 09/07/17 Breakfast Regular Diet [DIET] - Plan Plan:: Patient seen, examined and discussed with the student. Brief History: [facility] LIVE . L[facility]: [id number] Date of : Patient Status: Inpatient. Attending Provider: Pascual Alonzo Number: [id number]. Date: 09/07/17 19:00Initialization Date: 09/07/17 19:00. L & D Note. - General Info. Date of Service: 09/07/17. Mother's Due Date: 09/02/17. - Delivery Note. Labor: Spontaneous, Augmented by ARM, Augmented by Oxytocin. Delivery Outcome: Livebirth (female liveborn 09/07/17 at 1832 hrs. under epidural (worn off)weight pending Apgars 8/9 FERNANDEZ no episiotomy first- degree periurethral right medial laceration and midline and right second-degree laceration sutured with 3-0 Monocryl 1 for second-degree laceration first- degree laceration not bleeding not sutured.). Delivery Method: Spontaneous Vaginal Delivery-Single. Delivery Mode: Spontaneous. Presentation: Right Occiput Anterior (FERNANDEZ). Nuchal Cord: None. Prep: Povidone- Iodine (Betadine. Anesthesia Type: Local (one percent lidocaine without epinephrine), Epidural (for labor, no anesthesia at delivery, lidocaine 1% without epinephrine for repair of second-degree laceration midline right). Anesthetic: Lidocaine (Xylocaine) 1% Plain. Local Anesthetic Volume: Other (12 mL). Amniotic Fluid Description: Clear. Episiotomy Type: None. Laceration: 1st Degree (right periurethral medial not bleeding not sutured), 2nd Degree ( midline slightly to patient's right sutured with 3-0 Monocryl times one). Suture type: Other (Monocryl times one). Suture size: 3-0. Placenta: Intact ( intact delivered at 1837 hrs. and examined discarded central cord insertion), Spontaneous (1837 hrs. 09/07/17). Cord: 3 Vessels. Estimated Blood Loss: 300. Resuscitation Needed: No. : Suctioned, Bulb Syringe, Stimulated, Warmed , Thomson Used, Warmer Used. Provider: Pascual Alonzo. Score 1 min: 8. Score 5 min: 9. - Patient Data. Vitals - Most Recent: Last Vital Signs. Temp 98.2 F 09/06/17 19:19. Pulse 81 09/06/17 19:19. Resp 18 09/07/17 00:34. BP 116/75 09/06/17 19:19. Pulse Ox 99 09/07/17 00: 34. Weight - Most Recent: 177 lb. I&O - Last 24 Hours: Intake & Output. 01/1803/01/1803. 06:5914:5922:59. Intake Total60. [id number]. Lab Results Last 24 Hours: Laboratory Results - last 24 hr. 09/06/1802/07/18Range/ Units. 20:2220:22. WBC 10.89 H (3.98-10.04) K/mm3. RBC 4.01 (3.98-5.22) M/ mm3. Hgb 12.5 (11.2-15.7) gm/L. Hct 35.8 (34.1-44.9) %. MCV 89.3 (79.4-94.8 ) fl. MCH 31.2 (25.6-32.2) pg. MCHC 34.9 (32.2-35.5) g/dl. RDW Std Deviation 40.9 (36.4-46.3) fL. Plt Count 210 (182-369) K/mm3. MPV 9.3 L (9.4 -12.3) fl. Neut % (Auto) 74.9 H (34.0-71.1) %. Lymph % (Auto) 16.3 L (19.3- 51.7) %. Sargent % (Auto) 7.9 (4.7-12.5) %. Eos % (Auto) 0.4 L (0.7-5.8). Baso % (Auto) 0.1 (0.1-1.2) %. Neut # (Auto) 8.17 H (1.56-6.13) K/mm3. Lymph # (Auto) 1.77 (1.18-3.74) K/mm3. Sargent # (Auto) 0.86 H (0.24-0.36) K/ mm3. Eos # (Auto) 0.04 (0.04-0.36) K/mm3. Baso # (Auto) 0.01 (0.01-0.08) K/ mm3. Blood Type A POSITIVE. Gel Antibody Screen Negative. Med Orders - Current: Current Medications. Diphenhydramine HCl (Benadryl) 25 mg IVPUSH Q6H PRN. PRN Reason: pruritis. Ephedrine Sulfate (Ephedrine Sulfate) 5 mg IVPUSH ASDIRECTED PRN. PRN Reason: Hypotension. Fentanyl (Sublimaze) 100 mcg EPIDUR Q3H PRN. PRN Reason: Pain. Last Admin: 09/07/17 00:35 Dose: 100 mcg. Fentanyl/Bupivacaine HCl (Fentanyl/Bupivacaine/Ns 2 Mcg-0.125% 100 Ml) 100 ml EPIDUR ASDIRECTED HUAN. Last Admin: 09/07/17 00:34 Dose: 100 ml. Lactated Ringer's (Ringers, Lactated) 1,000 mls @ 100 mls/hr IV ASDIRECTED HUAN. Last Admin: 09/07/17 08:43 Dose: 100 mls/hr. Oxytocin/Lactated Ringer's (Pitocin In Lr 10 Units/1,000 Ml) 10 unit in 1,000 mls @ 12 mls/hr IV TITRATE HUAN; 2 MUNITS/MIN. PRN Reason: Protocol. Last Titration: 09/07/17 11:40 Dose: 3 munits/min, 18 mls/hr. Oxytocin 20 unit/ Lactated (Ringer's) 1,002 mls @ 500 mls/hr IV ASDIRECTED HUAN. Sodium Chloride (Saline Flush) 10 ml FLUSH ASDIRECTED PRN. PRN Reason: Keep Vein Open. Discontinued Medications. Lactated Ringer's (Ringers, Lactated) Confirm Administered Dose 1,000 mls @ as directed .ROUTE .STK-MED ONE. Stop: 09/06/17 21:16. Oxytocin/Lactated Ringer' s (Pitocin In Lr 10 Units/1,000 Ml) Confirm Administered Dose 10 unit in 1,000 mls @ as directed IV .STK-MED ONE. Stop: 09/06/17 21:17. Lactated Ringer's ( Ringers, Lactated) Confirm Administered Dose 1,000 mls @ as directed .ROUTE .STK -MED ONE. Stop: 09/06/17 23:43. Lactated Ringer's (Ringers, Lactated) Confirm Administered Dose 1,000 mls @ as directed .ROUTE .STK-MED ONE. Stop: 09/07/17 00:49. Lactated Ringer's (Ringers, Lactated) Confirm Administered Dose 1,000 mls @ as directed .ROUTE .STK-MED ONE. Stop: 09/07/17 03:05. Lactated Ringer' s (Ringers, Lactated) Confirm Administered Dose 1,000 mls @ as directed .ROUTE .STK-MED ONE. Stop: 09/07/17 08:34. Lidocaine HCl (Xylocaine 1%) Confirm Administered Dose 50 ml .ROUTE .STK-MED ONE. Stop: 09/07/17 18:35. - Problem List & Annotations. (1) 40 weeks gestation of . SNOMED Code(s): 66115711. Code(s): Z3A.40 - 40 WEEKS GESTATION OF Status: Acute Current Visit: Yes. (2) Second degree perineal laceration during delivery. SNOMED Code(s): 1157882. Code(s): O70.1 - SECOND DEGREE PERINEAL LACERATION DURING DELIVERY Status: Acute Current Visit: Yes. (3) Periurethral laceration, delivered, current hospitalization. SNOMED Code(s): 938416530. Code(s): O71.82 - OTHER SPECIFIED TRAUMA TO PERINEUM AND VULVA Status: Acute Current Visit: Yes. - Problem List Review. Problem List Initiated/Reviewed/ Updated: No. - My Orders. Last 24 Hours: My Active Orders. 09/06/17 20:07. Sodium Chloride 0.9% [Saline Flush] 10 ml FLUSH ASDIRECTED PRN. 09/06/17 20: 12. Patient Status [ADT] Routine. Activity as Tolerated [RC] PFP. Communication Order [RC] ASDIRECTED. Notify Provider [RC] PFP. Notify Provider [RC] PRN. Vital Signs [RC] 04,12,20. Electronic Heart Tones Ext w TOCO [WOMSER] Routine. Electronic Heart Tones Internal [WOMSER] Per Unit Routine. Peripheral IV Insertion Adult [OM.PC] Routine. 09/06/17 20: 15. Lactated Ringers [Ringers, Lactated] 1,000 ml IV ASDIRECTED. Oxytocin [ Pitocin] 20 unit Lactated Ringers [Ringers, Lactated] 1,000 ml IV ASDIRECTED. Oxytocin/Lactated Ringers [Pitocin in LR 10 Units/1,000 ML] 10 unit in 1,000 ml IV TITRATE. 09/07/17 Breakfast. Regular Diet [DIET]. - Plan. Plan:: Patient seen, examined and discussed with the student. - Discharge Data Discharge Date: 09/09/17 Discharge Disposition: Home, Self-Care 01 Condition: Good - Discharge Diagnosis/Problem(s) (1) 40 weeks gestation of SNOMED Code(s): 49653404 ICD Code: Z3A.40 - 40 WEEKS GESTATION OF Status: Acute Current Visit: Yes (2) Second degree perineal laceration during delivery SNOMED Code(s): 9323560 ICD Code: O70.1 - SECOND DEGREE PERINEAL LACERATION DURING DELIVERY Status : Acute Current Visit: Yes (3) Periurethral laceration, delivered, current hospitalization SNOMED Code(s): 853778186 ICD Code: O71.82 - OTHER SPECIFIED TRAUMA TO PERINEUM AND VULVA Status: Acute Current Visit: Yes - Patient Summary/Data Complications: None Hospital Course: uneventful - Patient Instructions Diet: Regular Diet as Tolerated Driving: Do Not Drive Showering/Bathing: May Shower (Ounce 48 hours) Notify Provider of: Fever, Increased Pain, Swelling and Redness, Drainage, Nausea and/or Vomiting - Discharge Plan Home Medications: Home Meds Ferrous Sulfate [Iron] 325 mg PO DAILY 09/06/17 [History] Loratadine [Claritin] 10 mg PO DAILY 09/06/17 [History] Pnv No.122/Iron/Folic Acid [ Multi Tablet] 1 each PO DAILY 09/06/17 [ History] Acetaminophen [Tylenol] 650 mg PO Q4H PRN tablet 09/09/17 [Rx] Docusate Sodium [Colace] 100 mg PO BID PRN cap 09/09/17 [Rx] Ibuprofen [IJD: Ibuprofen] 600 mg PO Q4H PRN tablet 09/09/17 [Rx] Lanolin [Lansinoh HPA] 1 applic TOP ASDIRECTED PRN tube 09/09/17 [Rx] Referrals: Jason Preston MD [Physician] - ([address] Preston) - Discharge Summary/Plan Comment DC Time >30 min.: No - Patient Data Vitals - Most Recent: Last Vital Signs Temp 98.8 F 09/09/17 03:55 Pulse 64 09/09/17 03:55 Resp 14 09/09/17 03:55 BP 105/63 09/09/17 03:55 Pulse Ox 98 09/09/17 03:55 Weight - Most Recent: 177 lb I&O - Last 24 hours: Intake & Output 09/08/17 09/09/17 09/09/17 22:59 06:59 14:59 Intake Total 320 Balance 320 Med Orders - Current: Current Medications Acetaminophen (Tylenol) 650 mg PO Q4H PRN PRN Reason: mild pain or fever Hydrocodone Bitart/Acetaminophen ([place] 325-5 Mg) 2 tab PO Q4H PRN PRN Reason: Pain (moderate 4-6) Benzocaine/Menthol (Dermoplast Pain Relief [place]) 0 gm TOP ASDIRECTED PRN PRN Reason: Perineal Comfort Measure Last Admin: 09/07/17 21:41 Dose: 1 applic Docusate Sodium (Colace) 100 mg PO BID PRN PRN Reason: Constipation Emollient Ointment (Lansinoh Hpa) 0 gm TOP ASDIRECTED PRN PRN Reason: Sore Nipples Last Admin: 09/08/17 21:00 Dose: 1 tube Ibuprofen (Motrin) 600 mg PO Q4H PRN PRN Reason: Mild pain or fever Last Admin: 09/08/17 20:58 Dose: 600 mg Witch Rowan (Tucks) 1 pad TOP ASDIRECTED PRN PRN Reason: Hemorrhoid pain Last Admin: 09/07/17 21:41 Dose: 1 applic Discontinued Medications Diphenhydramine HCl (Benadryl) 25 mg IVPUSH Q6H PRN PRN Reason: pruritis Ephedrine Sulfate (Ephedrine Sulfate) 5 mg IVPUSH ASDIRECTED PRN PRN Reason: Hypotension Fentanyl (Sublimaze) 100 mcg EPIDUR Q3H PRN PRN Reason: Pain Last Admin: 09/07/17 00:35 Dose: 100 mcg Fentanyl/Bupivacaine HCl (Fentanyl/Bupivacaine/Ns 2 Mcg-0.125% 100 Ml) 100 ml EPIDUR ASDIRECTED [facility] Last Admin: 09/07/17 00:34 Dose: 100 ml Lactated Ringer's (Ringers, Lactated) 1,000 mls @ 100 mls/hr IV ASDIRECTED [facility] Last Admin: 03/08/18 08:43 Dose: 100 mls/hr Oxytocin/Lactated Ringer's (Pitocin In Lr 10 Units/1,000 Ml) 10 unit in 1,000 mls @ 12 mls/hr IV TITRATE HUAN; 2 MUNITS/MIN PRN Reason: Protocol Last Titration: 09/07/17 11:40 Dose: 3 munits/min, 18 mls/hr Oxytocin 20 unit/ Lactated (Ringer's) 1,002 mls @ 500 mls/hr IV ASDIRECTED HUAN Lactated Ringer's (Ringers, Lactated) Confirm Administered Dose 1,000 mls @ as directed .ROUTE .STK-MED ONE Stop: 09/06/17 21:16 Last Admin: 09/07/17 19:24 Dose: Not Given Oxytocin/Lactated Ringer's (Pitocin In Lr 10 Units/1,000 Ml) Confirm Administered Dose 10 unit in 1,000 mls @ as directed IV .[employer]-MED ONE Stop: 09/06/17 21:17 Last Admin: 09/07/17 19:24 Dose: Not Given Lactated Ringer's (Ringers, Lactated) Confirm Administered Dose 1,000 mls @ as directed .ROUTE .[employer]-MED ONE Stop: 09/06/17 23:43 Last Admin: 09/07/17 19:24 Dose: Not Given Lactated Ringer's (Ringers, Lactated) Confirm Administered Dose 1,000 mls @ as directed .ROUTE .[employer]-MED ONE Stop: 09/07/17 00:49 Last Admin: 09/07/17 19:24 Dose: Not Given Lactated Ringer's (Ringers, Lactated) Confirm Administered Dose 1,000 mls @ as directed .ROUTE .[employer]-MED ONE Stop: 09/07/17 03:05 Last Admin: 09/07/17 19:25 Dose: Not Given Lactated Ringer's (Ringers, Lactated) Confirm Administered Dose 1,000 mls @ as directed .ROUTE .STK-MED ONE Stop: 09/07/17 08:34 Last Admin: 09/07/17 19:26 Dose: Not Given Lidocaine HCl (Xylocaine 1%) Confirm Administered Dose 50 ml .ROUTE .STK-MED ONE Stop: 09/07/17 18:35 Last Admin: 09/07/17 21:42 Dose: Not Given Sodium Chloride (Saline Flush) 10 ml FLUSH ASDIRECTED PRN PRN Reason: Keep Vein Open *Q Meaningful Use (DIS) - VTE *Q VTE Criteria *Q: - Stroke *Q Stroke Criteria *Q: - AMI *Q AMI Criteria *Q:
[2017-09-09] MEDS: Ibuprofen 600 MG Tab PO PRN (09:44)
== END 2017-09-09 12:40 | disposition home or self-care (01) | DRG 560 ==
LOC: JD.OBCHECK 10:19 → JD.OB 10:20 → JD.OBCHECK 11:35 → JD.OB 11:35 → UNDOADMOB 18:47 → JD.OB 18:48 → JD.OBCHECK 20:55 → JD.OB 09-07 18:32 → OBSVTOIN 09-07 18:32
PROVIDERS: ADMIT Obstetrics & Gynecology; ATTEND Obstetrics & Gynecology
PROC: 10E0XZZ Delivery of Products of Conception, External Approach (ICD-10-PCS; principal; 2017-09-07)
PROC: 10907ZC Drainage of Amniotic Fluid, Therapeutic from Products of Conception, Via Natural or Artificial Opening (ICD-10-PCS; 2017-09-07)
PROC: 3E033VJ Introduction of Other Hormone into Peripheral Vein, Percutaneous Approach (ICD-10-PCS; 2017-09-07)
PROC: 0KQM0ZZ Repair Perineum Muscle, Open Approach (ICD-10-PCS; 2017-09-07)
PROC: 00HU33Z Insertion of Infusion Device into Spinal Canal, Percutaneous Approach (ICD-10-PCS; 2017-09-07)
PROC: 3E0R3BZ Introduction of Anesthetic Agent into Spinal Canal, Percutaneous Approach (ICD-10-PCS; 2017-09-07)
DX: O70.1 Second degree perineal laceration during delivery (principal); Z3A.40 40 weeks gestation of pregnancy; Z37.0 Single live birth
CPT/HCPCS: 36415; 51702; 59025; 59300; 59409; 84112; 85025; 86850; 86900; 86901; A9270-GY; J2590; J3010; J7120

== ENCOUNTER 2020-06-01 00:34 | Inpatient (IN) | payer BC ==
--- NOTE | 2020-06-01 14:09 | PCM.LDHP ---
L&D History of Present Illness - General Date of Service: 06/01/20 Admit Problem/Dx: Admission Diagnosis/Problem Admission Diagnosis/Problem 06/01/20 13:59 Melody is a 25-year-old 3 para 2-0-0-2 white female at 40-1/7 weeks gestational age with an FERCHO of 05/31/2020 admitted for induction of labor. Source of Information: Patient History Limitations: Reports: No Limitations - History of Present Illness Introduction:: Melody is a 25-year-old 3 para 2-0-0-2 white female at 40-1/7 weeks gestational age with an FERCHO of 05/31/2020 admitted for induction of labor. The procedure, process and alternatives to induction of labor discussed in detail with patient. She appears understand and wishes to proceed. On last evaluation clinic her cervix was 3+ centimeters/soft, -2 station/mid position/cephalic presentation/80% effaced. 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 Certain LMP was 08/25/2019. Patient was not using any control at the time of conception and had been having monthly cycles. She is certain about her last menstrual period. Patient had menarche approximately age 12. Cycles q. months. No STIs or abnormal Pap smears noted in the patient. Her past obstetric record includes the followin. Delivery on 09/08/1999 18-40-5/7 weeks gestational age20 hours of labor7 pound 10 ounce female born via NSVDhad epidural in place for analgesia. Baby delivered at [facility]. She had 1/3 degree laceration. She pushed for 3 hours. Child's name is Yanira Sadler. 2. Delivery 01/06/2019 at 40-3/7 weeks gestational age after 8 hours of labor8 pound 11 ounce female born via spontaneous vaginal deliveryepidural in place for analgesia. Baby delivered at [facility]. Child's name is Sandra. course: Patient was seen early in the and had a an ultrasound done at 12 weeks gestational age. She was seen on a very regular basis. Second ultrasound done at 20 weeks was consistent with dates. Her weight gain was from 144.4 to 165.6 pounds for 21 pound increase. Vital signs remained stable throughout the course and her fundal height growth was appropriate. Patient received flu shot in early April. She had an abnormal 1 hour GTT but declined 3-hour GTT and decided to blood sugars instead. Blood sugars have been normal throughout the remainder of the . Her Haslet depression screen score on 01/23/2020 was 0/30. She has a history of a goiter. Had gestational diabetes with second . She plans to breast-feed. Tdap was given on 04/09/2020. She had her flu shot on 04/02/2020. She is rubella immune. Her hepatitis B vaccinations occurred in 1995. Her meningococcal vaccinations in 2013. labs: On first visit patient blood was noted to be a positive with a negative antibody screen. Her hemoglobin was 12.9 g/dL and platelets are 262,000. She is rubella immune. RPR is nonreactive. Urine culture was negative. Hepatitis B surface antigen and HIV assays were both negative. Chlamydia and gonorrhea assays were both negative. TSH on 11/14/2019 was normal at 0.956 milliunits/mL. Second trimester labs showed a hemoglobin of 11.8 g/dL and patient was started on ferrous sulfate 325 mg p.o. daily. Platelets were 206,000. 1 hour GTT is 149. Patient decided to do blood testing instead of doing a 3-hour gtt. as she felt it was going to be positive either way. Sugars remain normal throughout the course. Laboratory testing on 05/05/2020 showed a free T4 which was normal at 1.07 and a TSH that was normal at 0.918. RPR on 02/17/2020 was nonreactive. Group B strep screen was negative. Allergies: Seasonal allergies. No known drug allergies. Medications: 1. Ferrous sulfate 3 and 25 mg p.o. daily 2. vitamins 1 p.o. daily Past medical history: 1. Normal spontaneous vaginal livery x2 2. Gestational diabetes with last 3. Thyroid nodulestable-benign. Past surgical history: Unremarkable Family history: Mother and father are alive and well. Maternal grandmother secondary to metastatic breast cancer with diagnosis in her early 60s. Maternal grandfather alive in his mid 70s had open heart surgery in the past is doing well. Paternal grandmother alive in her mid 70s with arthritis but otherwise healthy. Paternal grandfather alive in his mid 70s with open heart surgery, mild strokes and diabetes mellitus. Patient has a second cousin with Down syndrome. No anesthesia, bleeding, blood clotting, is noted in the family. Social history: Patient is . 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 She lives in [place] with her Bryan. Bryan works at [employer]. She does not use any significant also alcohol, drugs or tobacco. Review of systems: In general patient has no complaints. Skin: Negative Lungs: No infectious symptoms or shortness of breath Cardiovascular: No chest pain or exercise intolerance Breasts: No lumps, changes in size, pain, dimpling, discharge or axillary or supraclavicular concerns. Melody plans to breast-feed. GI: Negative : Body habitus changes consistent with Musculoskeletal: Negative Neurological: Negative Physical exam: In general the patient is well-developed, well-nourished, pleasant female of stated age in no acute distress. Skin is warm dry without lesions. HEENT, neck and back within normal limits. Lungs are clear with good breath sounds in all lung gee. Cardiovascular exam shows regular and rhythm without murmurs. Exam done at first visit was normal. Not repeated at this time. Abdomen is gravid with fundal height of 38 cm on last evaluation.. Genital as above. Extremities and neurological exam are grossly within normal limits. - Related Data Allergies/Adverse Reactions: Allergies Allergy/AdvReac Type Severity Reaction Status Date / Time No Known Allergies Allergy Verified 09/06/17 11:15 Home Medications: Home Meds Ferrous Sulfate [Iron] 325 mg PO DAILY 09/06/17 [History] Loratadine [Claritin] 10 mg PO ASDIRECTED PRN 09/06/17 [History] No122/Iron/Folic Acid [ Multi Tablet] 1 each PO DAILY 09/06/17 [History] Acetaminophen [Tylenol] 650 mg PO Q4H PRN tablet 09/09/17 [Rx] Past Medical History HEENT History: Reports: Impaired Vision, Other (See Below) Other HEENT History: wears glasses or contacts Cardiovascular History: Reports: None Respiratory History: Reports: None Gastrointestinal History: Reports: GERD (very little) 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: Reports: Endocrine/Metabolic History: Reports: Diabetes, Gestational, Other (See Below) Other Endocrine/Metabolic History: thyroid nodules - Past Surgical History Endocrine Surgical History: Reports: None Social & Family History - Family History Family Medical History: No Pertinent Family History Cardiac: Reports: Other (See Below) Musculoskeletal: Reports: Arthritis Neurological: Reports: Other (See Below) Endocrine/Metabolic: Reports: Diabetes, Type I Oncologic: Reports: Breast - Caffeine Use Caffeine Use: Reports: Coffee H&P Review of Systems - Review of Systems: Review Of Systems: See Below L&D Exam - Exam Exam: See Below Problem List Initiated/Reviewed/Updated: Yes Assessment/Plan Comment:: 1. 40-1/7-week intrauterine with an FERCHO of 05/31/2020 admitted for induction of labor. 2. Is gestational diabetichas had normal blood sugars with dietary control only. Otherwise is a low risk . 3. Group B strep negative 4. Patient is considering epidural in labor 5. History of goiter but thyroid function studies have been normal 6. Low risk otherwise. 7. Patient has received her flu shot, her Tdap. Plan: 1. Admit for induction of labor. If head is well applied to the cervix will initiate labor with AROM. Pitocin to be added if needed. The procedure, risk benefits alternatives are discussed in detail with patient. She appears understand and wished to proceed 2. Epidural per patient desire 3. COVID-19, RPR and CBC testing upon admission per protocol 4. Support breast-feeding decision 5. Routine labor care.
[2020-06-01] MEDS ORDERED: Nalbuphine 10 MG/1 ML Vial IVPUSH PRN (19:13)
[2020-06-01] MEDS ORDERED: Sodium Chloride 0.9% 10 ML Syringe FLUSH PRN (19:13)
[2020-06-01] MEDS ORDERED: Ondansetron 4 MG/2 ML SDV IVPUSH PRN (19:13)
[2020-06-01] MEDS ORDERED: Oxytocin/Lactated Ringers 10 UNIT/1,000 ML BAG IV SCH ×2 (19:15)
--- NOTE | 2020-06-01 20:24 | PCM.PREANE ---
Preanesthetic Assessment - Procedure Proposed Procedure: cecilio - Anesthesia/Transfusion/Family Hx Anesthesia History: Prior Anesthesia Without Reaction Family History of Anesthesia Reaction: No Transfusion History: No Prior Transfusion(s) - Review of Systems General: No Symptoms Pulmonary: No Symptoms Cardiovascular: No Symptoms Gastrointestinal: No Symptoms Other: Reports: Diabetes (gestational), Thyroid Problems (goiter and watching) - Physical Assessment Vital Signs: Last Vital Signs Temp 98.7 F 06/01/20 19:13 Pulse 76 06/01/20 19:13 Resp 16 06/01/20 19:13 BP 111/62 06/01/20 19:13 Pulse Ox 96 06/01/20 19:13 Height: 5 ft 5 in Weight: 76.113 kg ASA Class: 2 Mental Status: Alert & Oriented x3 Airway Class: Mallampati = 1 Dentition: Reports: Normal Dentition Thyro-Mental Finger Breadths: 3 Mouth Opening Finger Breadths: 3 ROM/Head Extension: Full Lungs: Clear to Auscultation, Normal Respiratory Effort Cardiovascular: Regular Rate, Regular Rhythm - Lab Values: Laboratory Last Values WBC 8.22 K/mm3 (3.98-10.04) 06/01/20 19:23 RBC 3.64 M/mm3 (3.98-5.22) L 06/01/20 19:23 Hgb 11.4 gm/dl (11.2-15.7) 06/01/20 19:23 Hct 33.0 % (34.1-44.9) L 06/01/20 19:23 MCV 90.7 fl (79.4-94.8) 06/01/20 19:23 MCH 31.3 pg (25.6-32.2) 06/01/20 19:23 MCHC 34.5 g/dl (32.2-35.5) 06/01/20 19:23 RDW Std Deviation 42.8 fL (36.4-46.3) 06/01/20 19:23 Plt Count 215 K/mm3 (182-369) 06/01/20 19:23 MPV 9.8 fl (9.4-12.3) 06/01/20 19:23 Neut % (Auto) 71.1 % (34.0-71.1) 06/01/20 19:23 Lymph % (Auto) 21.0 % (19.3-51.7) 06/01/20 19:23 Rhea % (Auto) 7.3 % (4.7-12.5) 06/01/20 19:23 Eos % (Auto) 0.5 (0.7-5.8) L 06/01/20 19:23 Baso % (Auto) 0.1 % (0.1-1.2) 06/01/20 19:23 Neut # (Auto) 5.84 K/mm3 (1.56-6.13) 06/01/20 19:23 Lymph # (Auto) 1.73 K/mm3 (1.18-3.74) 06/01/20 19:23 Rhea # (Auto) 0.60 K/mm3 (0.24-0.36) H 06/01/20 19:23 Eos # (Auto) 0.04 K/mm3 (0.04-0.36) 06/01/20 19:23 Baso # (Auto) 0.01 K/mm3 (0.01-0.08) 06/01/20 19:23 - Allergies Allergies/Adverse Reactions: Allergies Allergy/AdvReac Type Severity Reaction Status Date / Time No Known Allergies Allergy Verified 09/06/17 11:15 - Blood Blood Available: No - Acknowledgements Anesthesia Type Planned: Epidural Pt an Appropriate Candidate for the Planned Anesthesia: Yes Alternatives and Risks of Anesthesia Discussed w Pt/Guardian: Yes Pt/Guardian Understands and Agrees with Anesthesia Plan: Yes PreAnesthesia Questionnaire HEENT History: Reports: Impaired Vision, Other (See Below) Other HEENT History: wears glasses or contacts Cardiovascular History: Reports: None Respiratory History: Reports: None Gastrointestinal History: Reports: 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: Endocrine/Metabolic History: Reports: Diabetes, Gestational, Other (See Below) Other Endocrine/Metabolic History: thyroid nodules - Past Surgical History HEENT Surgical History: Reports: Oral Surgery Endocrine Surgical History: Reports: None - SUBSTANCE USE Tobacco Use Status *Q: Never Tobacco User Tobacco Use Within Last Twelve Months: No Second Hand Smoke Exposure: No Days Per Week of Alcohol Use: 0 Recreational Drug Use History: No - HOME MEDS Home Medications: Home Meds Ferrous Sulfate [Iron] 325 mg PO DAILY 09/06/17 [History] Loratadine [Claritin] 10 mg PO ASDIRECTED PRN 09/06/17 [History] No122/Iron/Folic Acid [ Multi Tablet] 1 each PO DAILY 09/06/17 [History] Acetaminophen [Tylenol] 650 mg PO Q4H PRN tablet 09/09/17 [Rx] - CURRENT (IN HOUSE) MEDS Current Meds: Current Medications Oxytocin/Lactated Ringer's (Pitocin In Lr 10 Units/1,000 Ml) 10 unit in 1,000 mls @ 12 mls/hr IV TITRATE HUAN; Protocol Oxytocin/Lactated Ringer's (Pitocin In Lr 10 Units/1,000 Ml) 10 unit in 1,000 mls @ 500 mls/hr IV .CONTINUOUS HUAN Lactated Ringer's (Ringers, Lactated) 1,000 mls @ 100 mls/hr IV ASDIRECTED HUAN Nalbuphine HCl (Nubain) 10 mg IVPUSH Q2H PRN PRN Reason: Pain Ondansetron HCl (Zofran) 4 mg IVPUSH Q4H PRN PRN Reason: Nausea/Vomiting Sodium Chloride (Saline Flush) 10 ml FLUSH ASDIRECTED PRN PRN Reason: Keep Vein Open
[2020-06-01] MEDS ORDERED: ePHEDrine 50 MG/ML SDV IVPUSH PRN (20:26)
[2020-06-01] MEDS ORDERED: Bupivacaine/fentaNYL/NS 100 ML Bag EPIDUR PRN (20:26)
[2020-06-01] MEDS ORDERED: diphenhydrAMINE 50 MG/ML SDV IVPUSH PRN (20:26)
[2020-06-01] MEDS ORDERED: fentaNYL 100 MCG/2 ML SDV EPIDUR PRN (20:26)
[2020-06-01] MEDS: Lactated Ringers 1,000 ML IV SCH ×2 (21:12→22:00)
[2020-06-02] MEDS ORDERED: Bupivacaine 0.25% 10 ML SDV ONE
[2020-06-02] MEDS ORDERED: Methylergonovine 0.2 MG/1 ML Amp IM ONE (01:00)
[2020-06-02] MEDS ORDERED: Witch Hazel Medicated Pads 40/Jar TOP PRN (01:07)
[2020-06-02] MEDS ORDERED: Acetaminophen 325 MG Tab PO PRN (01:07)
[2020-06-02] MEDS ORDERED: Docusate Sodium 100 MG Cap PO PRN (01:07)
[2020-06-02] MEDS ORDERED: Ibuprofen 600 MG Tab PO PRN (01:07)
[2020-06-02] MEDS ORDERED: Benzocaine/Menthol 20%-0.5% Spray 56 GM Canister TOP PRN (01:07)
--- NOTE | 2020-06-02 01:13 | PCM.SN.2 ---
- Free Text/Narrative Note: Delivery note: Melody is a 25-year-old 3 now para 3-0-0-3 white female at 40-2/7 weeks gestational age with an FERCHO of 05/31/2020 admitted for induction on the evening of 06/01/2020. She underwent artificial rupture of membranes induction. Cervix at the time of admission was 4 cm, 80% effaced, very soft, cephalic presentation. She rapidly went into labor and progressed naturally thereafter till complete patient which occurred at approximately 0012 hours on 06/02/2020. She underwent epidural for labor analgesia with good results. At 0034 hours on 06/02/2020 she delivered a viable, mckeon, female named Lashon Slater in a direct occiput anterior position. Perineum remained intact and no suturing was required. The baby was placed on mom's abdomen, was dried in a routine fashion. Nose and mouth were bulb suction. Pitocin was increased to 500 cc/h to facilitate increase in uterine tone and decrease likelihood of bleeding. The baby was a female, weighed 3180 g (8 pounds 5 ounces), was 21.5 inches in length and had Apgars of 8 and 9. Cord was allowed to pulsate for 2 to 3 minutes, was then clamped x2 and cut by the baby's Father Bryan. The umbilical cord had 3 vessels. Cord blood was obtained. The patient had a history of previous hemorrhage and because of the slightly increased flow was given Methergine 0.2 mg IM shortly after delivery. Placenta hesitated in delivery but did present spontaneously in a Walker presentation at 0050 hours. It appeared intact and complete. Approximately 200 cc of blood loss. Patient plans to breast-feed. Condition: Good
[2020-06-02] MEDS ORDERED: Prenatal Multivitamin with Calcium/Folic Acid/Iron Tab PO SCH (09:00)
--- NOTE | 2020-06-02 10:00 | PCM.SN.2 ---
- Free Text/Narrative Note: note: Delivery Patient is doing well in the period. Minimal lochia, voiding well, ambulated without problems. Nursing without concerns. Patient is afebrile, vital signs are stable Abdomen is flat, soft, uterus is below the umbilicus and is firm and nontender. Legs are nontender. Assessment: recovery going well. Plan: Routine care. Patient be discharged home within the next 24-48 hours.
--- NOTE | 2020-06-02 15:44 | PCM48HPAN ---
Post Anesthesia Note - EVALUATION WITHIN 48HRS OF ANESTHETIC Vital Signs in Normal Range: Yes Patient Participated in Evaluation: Yes Respiratory Function Stable: Yes Airway Patent: Yes Cardiovascular Function Stable: Yes Hydration Status Stable: Yes Pain Control Satisfactory: Yes Nausea and Vomiting Control Satisfactory: Yes Mental Status Recovered: Yes Vital Signs: Last Vital Signs Temp 36.6 C 06/02/20 08:05 Pulse 63 06/02/20 08:05 Resp 16 06/02/20 08:05 BP 106/73 06/02/20 08:05 Pulse Ox 97 06/02/20 08:05
--- NOTE | 2020-06-03 07:29 | PCM.DCSUM1 ---
Discharge Summary - Hospital Course Free Text/Narrative:: Melody is a 25-year-old 3 now para 3-0-0-3 white female at 40-2/7 weeks gestational age with an FERCHO of 05/31/2020 admitted for induction on the evening of 06/01/2020. She underwent artificial rupture of membranes induction. Cervix at the time of admission was 4 cm, 80% effaced, very soft, cephalic presentation. She rapidly went into labor and progressed naturally thereafter till complete patient which occurred at approximately 0012 hours on 06/02/2020. She underwent epidural for labor analgesia with good results. At 0034 hours on 06/02/2020 she delivered a viable, mckeon, female infant named Lashon Slater in a direct occiput anterior position. Perineum remained intact and no suturing was required. The baby was placed on mom's abdomen, was dried in a routine fashion. Nose and mouth were bulb suction. Pitocin was increased to 500 cc/h to facilitate increase in uterine tone and decrease likelihood of bleeding. The baby was a female, weighed 3180 g (8 pounds 5 ounces), was 21.5 inches in length and had Apgars of 8 and 9. Cord was allowed to pulsate for 2 to 3 minutes, was then clamped x2 and cut by the baby's Father Bryan. The umbilical cord had 3 vessels. Cord blood was obtained. The patient had a history of previous hemorrhage and because of the slightly increased flow was given Methergine 0.2 mg IM shortly after delivery. Placenta hesitated in delivery but did present spontaneously in a Walker presentation at 0050 hours. It appeared intact and complete. Approximately 200 cc of blood loss. patient has done well. She is placed in room and under COVID-19 precautions. Is nursing without concerns. He is ambulating well, voiding without problems and has minimal lochia. She is desiring discharge home. Condition: Good Diagnosis: Stroke: No - Discharge Data Discharge Date: 06/03/20 Discharge Disposition: Home, Self-Care 01 Condition: Good - Referral to Home Health Primary Care Physician: Jason Preston MD - Patient Instructions Diet: Regular Diet as Tolerated (Nursing diet with increased calories and calcium as recommended) Activity: As Tolerated (No intercourse or tampons until bleeding resolves) Driving: May Drive Today Showering/Bathing: May Shower Showering/Bathing, Other: May take a bath Notify Provider of: Fever, Increased Pain, Swelling and Redness, Nausea and/or Vomiting - Discharge Plan Home Medications: Home Meds Acetaminophen [Tylenol] 650 mg PO Q4H PRN tablet 06/03/20 [Rx] Docusate Sodium [Colace] 100 mg PO BID PRN cap 06/03/20 [Rx] Ibuprofen [Motrin] 600 mg PO Q4H PRN tablet 06/03/20 [Rx] Vit with Ca/FA/Iron [ Plus Iron] 1 each PO DAILY tablet 06/03/20 [Rx] terence Donahue [Kashifcks] 1 pad TOP ASDIRECTED PRN pad 06/03/20 [Rx] Referrals: Jason Preston MD [Primary Care Provider] - (RTC 2 weeks-Dr. Preston) - Discharge Summary/Plan Comment DC Time >30 min.: No - Patient Data Vitals - Most Recent: Last Vital Signs Temp 36.7 C 06/03/20 03:18 Pulse 69 06/03/20 03:18 Resp 16 06/03/20 03:18 BP 115/80 06/03/20 03:18 Pulse Ox 98 06/03/20 03:18 Weight - Most Recent: 76.113 kg Med Orders - Current: Current Medications Acetaminophen (Tylenol) 650 mg PO Q4H PRN PRN Reason: mild pain or fever Benzocaine/Menthol (Dermoplast Pain Relief [place]) 0 gm TOP ASDIRECTED PRN PRN Reason: Perineal Comfort Measure Last Admin: 06/02/20 03:17 Dose: 1 can Documented by: Docusate Sodium (Colace) 100 mg PO BID PRN PRN Reason: Constipation Ibuprofen (Motrin) 600 mg PO Q4H PRN PRN Reason: Mild pain or fever Last Admin: 06/03/20 00:16 Dose: 600 mg Documented by: Prenat Multivit/Quartz Mounter/Iron/Folic Ac ( Plus Iron) 1 each PO DAILY HUAN Last Admin: 06/02/20 12:26 Dose: 1 each Documented by: Terence Donahue (Tucks) 1 pad TOP ASDIRECTED PRN PRN Reason: Perineal Comfort Measure Last Admin: 06/02/20 03:16 Dose: 1 can Documented by: Discontinued Medications Bupivacaine HCl (Sensorcaine-Mpf 0.25%) 10 ml .ROUTE .STK-MED ONE Stop: 06/02/20 00:01 Diphenhydramine HCl (Benadryl) 25 mg IVPUSH Q6H PRN PRN Reason: pruritis Ephedrine Sulfate (Ephedrine Sulfate) 5 mg IVPUSH ASDIRECTED PRN PRN Reason: Hypotension Fentanyl (Sublimaze) 100 mcg EPIDUR Q3H PRN PRN Reason: Pain Last Admin: 06/01/20 21:58 Dose: 100 mcg Documented by: Fentanyl/Bupivacaine HCl (Fentanyl/Bupivacaine/Ns 2 Mcg-0.125% 100 Ml) 100 ml EPIDUR ASDIRECTED PRN PRN Reason: Pain Last Admin: 06/01/20 21:59 Dose: 100 ml Documented by: Oxytocin/Lactated Ringer's (Pitocin In Lr 10 Units/1,000 Ml) 10 unit in 1,000 mls @ 12 mls/hr IV TITRATE HUAN; Protocol Oxytocin/Lactated Ringer's (Pitocin In Lr 10 Units/1,000 Ml) 10 unit in 1,000 mls @ 500 mls/hr IV .CONTINUOUS HUAN Last Admin: 06/02/20 00:35 Dose: 500 mls/hr Documented by: Lactated Ringer's (Ringers, Lactated) 1,000 mls @ 100 mls/hr IV ASDIRECTED HUAN Last Admin: 06/01/20 22:00 Dose: 999 mls/hr Documented by: Methylergonovine Maleate (Methergine) 0.2 mg IM ONETIME ONE Stop: 06/02/20 01:01 Last Admin: 06/02/20 01:10 Dose: 0.2 mg Documented by: Nalbuphine HCl (Nubain) 10 mg IVPUSH Q2H PRN PRN Reason: Pain Ondansetron HCl (Zofran) 4 mg IVPUSH Q4H PRN PRN Reason: Nausea/Vomiting Sodium Chloride (Saline Flush) 10 ml FLUSH ASDIRECTED PRN PRN Reason: Keep Vein Open
== END 2020-06-03 10:50 | disposition home or self-care (01) | DRG 560 ==
LOC: JD.OB 00:34 → OBSVTOIN 06-02 00:34 → JD.OB 06-02 00:35
PROVIDERS: ADMIT Obstetrics & Gynecology; ATTEND Obstetrics & Gynecology
PROC: 10E0XZZ Delivery of Products of Conception, External Approach (ICD-10-PCS; principal; 2020-06-02)
PROC: 3E0R3BZ Introduction of Anesthetic Agent into Spinal Canal, Percutaneous Approach (ICD-10-PCS; 2020-06-02)
PROC: 10907ZC Drainage of Amniotic Fluid, Therapeutic from Products of Conception, Via Natural or Artificial Opening (ICD-10-PCS; 2020-06-02)
DX: O48.0 Post-term pregnancy (principal); Z3A.40 40 weeks gestation of pregnancy; Z37.0 Single live birth; O99.52 Diseases of the respiratory system complicating childbirth; U07.1 COVID-19
CPT/HCPCS: 01967; 36415; 51702; 59025; 59409; 85025; 86592; A9270-GY; J2210; J2590; J3010; J3490; J7120; U0002

== ENCOUNTER 2023-02-06 10:10 | Inpatient (IN) | payer BC ==
[~2023-02-06 10:10] MED LIST: Lidocaine 1% 10 ML MDV ONE
[2023-02-06] MEDS ORDERED: Nalbuphine 10 MG/0.5 ML Syringe IVPUSH PRN (10:26)
[2023-02-06] MEDS ORDERED: Lidocaine 1% 50 ML MDV INJECT PRN (10:26)
[2023-02-06] MEDS ORDERED: Ondansetron 4 MG/2 ML SDV IVPUSH PRN (10:26)
[2023-02-06] MEDS ORDERED: Oxytocin/Lactated Ringers 10 UNIT/1,000 ML BAG IV SCH ×2 (10:30)
[2023-02-06] MEDS: Lactated Ringers 1,000 ML IV SCH ×3 (10:47→19:19)
[2023-02-06 10:48] LABS: BASOPHILS ABSOLUTE AUTO 0.04 K/mm3 (0.01-0.08); BASOPHILS PERCENT AUTO 0.5 % (0.1-1.2); EOSINOPHILS ABSOLUTE AUTO 0.09 K/mm3 (0.04-0.36); EOSINOPHILS PERCENT AUTO 1.1 (0.7-5.8); HEMATOCRIT 37.4 % (34.1-44.9); HEMOGLOBIN 12.6 gm/dl (11.2-15.7); IMMATURE GRAN ABSOLUTE AUTO 0.04 K/mm3 (0.00-0.10); IMMATURE GRAN PERCENT AUTO 0.5 % (<=1.0); LYMPHOCYTES ABSOLUTE AUTO 2.11 K/mm3 (1.18-3.74); LYMPHOCYTES PERCENT AUTO 24.7 % (19.3-51.7); MEAN CORPUSCULAR HEMOGLOBIN 30.4 pg (25.6-32.2); MEAN CORPUSCULAR HGB CONC 33.7 g/dl (32.2-35.5); MEAN CORPUSCULAR VOLUME 90.3 fl (79.4-94.8); MEAN PLATELET VOLUME 9.8 fl (9.4-12.3); MONOCYTES ABSOLUTE AUTO 0.69 K/mm3 (0.24-0.36); MONOCYTES PERCENT AUTO 8.1 % (4.7-12.5); NEUTROPHILS ABSOLUTE AUTO 5.58 K/mm3 (1.56-6.13); NEUTROPHILS PERCENT AUTO 65.1 % (34.0-71.1); PLATELET COUNT,PLT 193 K/mm3 (182-369); RED BLOOD CELL COUNT 4.14 M/mm3 (3.98-5.22); WHITE BLOOD CELL COUNT,WBC 8.55 K/mm3 (3.98-10.04)
[2023-02-06] MEDS ORDERED: diphenhydrAMINE 50 MG/ML SDV IVPUSH PRN (10:53)
[2023-02-06] MEDS ORDERED: fentaNYL 100 MCG/2 ML SDV EPIDUR PRN (10:53)
[2023-02-06] MEDS ORDERED: ePHEDrine 50 MG/ML SDV IVPUSH PRN (10:53)
[2023-02-06] MEDS ORDERED: Bupivacaine/fentaNYL/NS 100 ML Bag EPIDUR PRN (10:53)
[2023-02-06] MEDS ORDERED: Ibuprofen 600 MG Tab PO PRN (22:42)
[2023-02-06] MEDS ORDERED: Witch Hazel Medicated Pads 40/Jar TOP PRN (22:42)
[2023-02-06] MEDS ORDERED: Benzocaine/Menthol 20%-0.5% Spray 78 GM Cannister TOP PRN (22:42)
[2023-02-06] MEDS ORDERED: Methylergonovine 0.2 MG/1 ML Amp IM PRN (22:42)
[2023-02-06] MEDS ORDERED: Acetaminophen 325 MG Tab PO PRN (22:42)
== END 2023-02-08 10:40 | disposition home or self-care (01) | DRG 560 ==
LOC: JD.OBCHECK 10:10 → JD.OB 10:20 → JD.OBCHECK 10:26 → OBSVTOIN 21:31 → JD.OB 21:32
PROVIDERS: ADMIT Family Medicine; ATTEND Family Medicine
PROC: 10E0XZZ Delivery of Products of Conception, External Approach (ICD-10-PCS; principal; 2023-02-06)
PROC: 3E0R3BZ Introduction of Anesthetic Agent into Spinal Canal, Percutaneous Approach (ICD-10-PCS; 2023-02-06)
PROC: 00HU33Z Insertion of Infusion Device into Spinal Canal, Percutaneous Approach (ICD-10-PCS; 2023-02-06)
DX: O42.92 Full-term premature rupture of membranes, unspecified as to length of time between rupture and onset of labor (principal); Z37.0 Single live birth; O24.420 Gestational diabetes mellitus in childbirth, diet controlled; Z3A.40 40 weeks gestation of pregnancy; O69.81X0 Labor and delivery complicated by cord around neck, without compression, not applicable or unspecified; Z79.899 Other long term (current) drug therapy
CPT/HCPCS: 36415; 51702; 59025; 59409; 82947; 85025; 86592; 86850; 86900; 86901; A9270-GY; J2210; J2590; J3010; J3490; J7120